=== PATIENT | male | born 1965 | race Caucasian/White ===

== ENCOUNTER 2017-03-12 05:07 | Inpatient (IN) | payer OTHER, MEDICAID ==
[~2017-03-12 05:07] MED LIST: AMLODIPINE BESYL5 MG PO; AUGMENTIN 875-1 EAC2 PO; CALCITRIOL0.25 MC1 PO; FUROSEMIDE40 M2 PO; H; HYDRALAZINE HCL50 M1 PO; HYDROCODON-ACE1 EA17 PO; ISOSORBIDE MONO60 M3 PO; METOPROLOL TAR100 M2 PO; PHENERGAN25 MG; POTASSIUM CHLO20 ME3 PO; RENVELA800 M1 PO; SULFAMYLON SOL250 M1 TOP; VIBRAMYCIN100 M1 PO; VITAMIN D250000 UNI1 PO
[2017-03-12 05:43] LABS: BASO % 0.6 % (0-2); EOS % 4.8 % (0-7); EOSINOPHIL ABSOLUTE COUNT 0.4 tho/cmm (0.0-0.7); HCT-HEMATOCRIT 35.5 % (36.0-53.5); HGB-HEMOGLOBIN 11.1 gm/dl (13.5-17.0); IMMATURE GRANULOCYTES ABSOLUTE 0.01 tho/cmm (0-0.03); IMMATURE GRANULOCYTES PERCENT 0.1 % (0-0.3); LYMPH % 9.4 % (20-45); LYMPH ABSOLUTE COUNT 0.7 tho/cmm (0.8-4.5); MCH (MEAN CORPUSCULAR HGB) 30.7 pg (28.0-32.0); MCHC MEAN CORPUSCULAR HGB CONC 31.3 % (32.0-36.0); MCV (MEAN CELL VOLUME) 98.1 fl (82.0-96.0); MEAN PLATELET VOLUME 10.3 cmc (9.4-12.4); MONO % 7.7 % (0-12); MONOCYTE ABSOLUTE COUNT 0.6 tho/cmm (0.0-1.2); NEUTROPHIL ABSOLUTE COUNT 5.6 tho/cmm (1.6-8.0); NEUTROPHIL-AUTOMATED 5.6 tho/cmm (1.6-8.0); NEUTROPHILS % 77.4 % (40-80); PLATELET COUNT 209 tho/cmm (150-450); RED BLOOD COUNT 3.62 mil/cmm (4.40-5.70); RED CELL DISTRIBUTION WIDTH 17.4 % (12.4-16.4); WHITE BLOOD COUNT 7.3 tho/cmm (4.0-10.0)
[2017-03-12 06:01] LABS: ANION GAP 13 mmol/L (0-20); BLOOD UREA NITROGEN 50 mg/dl (6-24); CALCIUM 7.4 mg/dl (8.5-10.5); CARBON DIOXIDE-VENOUS 27 mmol/L (22-32); CHLORIDE 103 mmol/l (96-110); CREATININE 5.75 mg/dl (0.60-1.30); GLUCOSE 110 mg/dL (70-110); POTASSIUM 4.7 mmol/L (3.7-5.1); SODIUM 138 mmol/L (135-145); eGFR VALUE FOR BLACK 12 mL/Min
[2017-03-12] MEDS ORDERED: FOLIC ACID1 M1 PO (07:06)
[2017-03-12] MEDS ORDERED: TRAZODONE HCL50 M1 PO (07:07)
[2017-03-12 12:52] LABS: URINE LEUKOCYTE ESTERASE NEGATIVE (NEG); URINE PROTEIN LARGE (NEG)
[2017-03-12 12:55] LABS: URINE APPEARANCE CLEAR; URINE BILIRUBIN NEGATIVE (NEG); URINE BLOOD SMALL (NEG); URINE COLOR YELLOW; URINE GLUCOSE (UA) MODERATE (NEG); URINE KETONE NEGATIVE (NEG); URINE NITRITE NEGATIVE (NEG)
[2017-03-12 13:01] LABS: URINE EPITHELIAL CELLS 0-1 /[HPF] (0-10)
[2017-03-13 05:15] LABS: ABG CO2 ARTERIAL 24 mmol/L (21-27); ARTERIAL BLD GAS O2 SATURATION 91 % (95-98); ARTERIAL BLOOD GAS PCO2 60 mmHg (32-45); ARTERIAL PO2 80 mmHg (70-100); BICARBONATE 23 mmol/L (21-28); BLOOD GAS BASE EXCESS -6 mM/L (-/+3)
[2017-03-13 06:59] LABS: BASO % 0.4 % (0-2); EOS % 2.7 % (0-7); EOSINOPHIL ABSOLUTE COUNT 0.2 tho/cmm (0.0-0.7); HCT-HEMATOCRIT 37.6 % (36.0-53.5); HGB-HEMOGLOBIN 11.7 gm/dl (13.5-17.0); IMMATURE GRANULOCYTES ABSOLUTE 0.02 tho/cmm (0-0.03); IMMATURE GRANULOCYTES PERCENT 0.3 % (0-0.3); LYMPH % 7.8 % (20-45); LYMPH ABSOLUTE COUNT 0.6 tho/cmm (0.8-4.5); MCH (MEAN CORPUSCULAR HGB) 30.9 pg (28.0-32.0); MCHC MEAN CORPUSCULAR HGB CONC 31.1 % (32.0-36.0); MCV (MEAN CELL VOLUME) 99.2 fl (82.0-96.0); MEAN PLATELET VOLUME 11.1 cmc (9.4-12.4); MONO % 6.4 % (0-12); MONOCYTE ABSOLUTE COUNT 0.5 tho/cmm (0.0-1.2); NEUTROPHIL ABSOLUTE COUNT 5.9 tho/cmm (1.6-8.0); NEUTROPHIL-AUTOMATED 5.9 tho/cmm (1.6-8.0); NEUTROPHILS % 82.4 % (40-80); PLATELET COUNT 244 tho/cmm (150-450); RED BLOOD COUNT 3.79 mil/cmm (4.40-5.70); WHITE BLOOD COUNT 7.2 tho/cmm (4.0-10.0)
[2017-03-13 07:15] LABS: ALBUMIN 2.8 g/dl (3.5-5.0); BLOOD UREA NITROGEN 66 mg/dl (6-24); CALCIUM 7.5 mg/dl (8.5-10.5); CARBON DIOXIDE-VENOUS 22 mmol/L (22-32); CHLORIDE 103 mmol/l (96-110); GLUCOSE 80 mg/dL (70-110); MAGNESIUM 1.9 mg/dl (1.8-2.6); SODIUM 138 mmol/L (135-145); eGFR VALUE FOR BLACK 9 mL/Min
[2017-03-13 07:18] LABS: ABG CO2 ARTERIAL 23 mmol/L (21-27); ARTERIAL BLD GAS O2 SATURATION 90 % (95-98); BICARBONATE 22 mmol/L (21-28); BLOOD GAS BASE EXCESS -4 mM/L (-/+3); PH 7.29 Units (7.35-7.45)
[2017-03-13 07:20] LABS: ARTERIAL BLOOD GAS PCO2 46 mmHg (32-45); ARTERIAL PO2 63 mmHg (70-100)
[2017-03-13 07:23] LABS: ANION GAP 20 mmol/L (0-20); CREATININE 7.24 mg/dl (0.60-1.30); POTASSIUM 6.8 mmol/L (3.7-5.1)
[2017-03-13 07:28] LABS: PHOSPHOROUS 8.6 mg/dl (2.5-4.9)
[2017-03-13] MEDS ORDERED: MINOXIDIL2.5 M1 PO (12:50)
[2017-03-13] MEDS ORDERED: FOLIC ACID1 M1 PO (12:51)
[2017-03-13] MEDS ORDERED: TRAZODONE HCL50 M1 PO (12:51)
[2017-03-13] MEDS ORDERED: PROAIR HFA8.5 GM INH (12:51)
[2017-03-14 04:24] LABS: BASO % 0.8 % (0-2); BASO ABSOLUTE COUNT 0.1 tho/cmm (0.0-0.2); EOSINOPHIL ABSOLUTE COUNT 0.3 tho/cmm (0.0-0.7); HCT-HEMATOCRIT 38.7 % (36.0-53.5); HGB-HEMOGLOBIN 12.2 gm/dl (13.5-17.0); IMMATURE GRANULOCYTES ABSOLUTE 0.02 tho/cmm (0-0.03); IMMATURE GRANULOCYTES PERCENT 0.3 % (0-0.3); LYMPH % 7.4 % (20-45); LYMPH ABSOLUTE COUNT 0.6 tho/cmm (0.8-4.5); MCH (MEAN CORPUSCULAR HGB) 30.6 pg (28.0-32.0); MCHC MEAN CORPUSCULAR HGB CONC 31.5 % (32.0-36.0); MEAN PLATELET VOLUME 10.9 cmc (9.4-12.4); MONO % 4.9 % (0-12); MONOCYTE ABSOLUTE COUNT 0.4 tho/cmm (0.0-1.2); NEUTROPHIL ABSOLUTE COUNT 6.5 tho/cmm (1.6-8.0); NEUTROPHIL-AUTOMATED 6.5 tho/cmm (1.6-8.0); NEUTROPHILS % 82.6 % (40-80); PLATELET COUNT 242 tho/cmm (150-450); RED BLOOD COUNT 3.99 mil/cmm (4.40-5.70); RED CELL DISTRIBUTION WIDTH 16.4 % (12.4-16.4); WHITE BLOOD COUNT 7.9 tho/cmm (4.0-10.0)
[2017-03-14 04:37] LABS: ALBUMIN 2.7 g/dl (3.5-5.0); BLOOD UREA NITROGEN 43 mg/dl (6-24); CALCIUM 7.1 mg/dl (8.5-10.5); CARBON DIOXIDE-VENOUS 25 mmol/L (22-32); CHLORIDE 100 mmol/l (96-110); PHOSPHOROUS 7.4 mg/dl (2.5-4.9); SODIUM 132 mmol/L (135-145); eGFR VALUE FOR BLACK 13 mL/Min
[2017-03-14 04:45] LABS: ANION GAP 12 mmol/L (0-20); CREATININE 5.33 mg/dl (0.60-1.30); GLUCOSE 140 mg/dL (70-110); POTASSIUM 4.7 mmol/L (3.7-5.1)
[2017-03-14 05:26] LABS: PROCALCITONIN 0.71 ng/ml (0.05-0.09)
[2017-03-15 05:57] LABS: INR 1.2 INR (0.9-1.1); PROTHROMBIN TIME 14.4 SECONDS (9.0-13.6)
[2017-03-15 06:03] LABS: ANION GAP 12 mmol/L (0-20); BLOOD UREA NITROGEN 31 mg/dl (6-24); CALCIUM 7.4 mg/dl (8.5-10.5); CARBON DIOXIDE-VENOUS 25 mmol/L (22-32); CHLORIDE 100 mmol/l (96-110); CREATININE 5.28 mg/dl (0.60-1.30); GLUCOSE 110 mg/dL (70-110); POTASSIUM 4.4 mmol/L (3.7-5.1); SODIUM 133 mmol/L (135-145); eGFR VALUE FOR BLACK 14 mL/Min
[2017-03-15 06:06] LABS: PHOSPHOROUS 4.4 mg/dl (2.5-4.9)
[2017-03-15] MEDS ORDERED: COREG6.25 M1 PO (14:57)
[2017-03-15] MEDS ORDERED: MINOXIDIL10 M1 PO (14:57)
[2017-03-15] MEDS ORDERED: FLONASE ALLERG9.9 ML (14:59)
[2017-03-15 17:19] LABS: BODY FLUID APPEARANCE HAZY (CLEAR); BODY FLUID COLOR YELLOW (COLORLESS); BODY FLUID RBC COUNT <1000 cmm (0); BODY FLUID TYPE PLEURAL; BODY FLUID VOLUME 1000 ml; BODY FLUID WBC COUNT 481 cmm
[2017-03-15 17:33] LABS: BODY FLUID LYMPHOCYTES 23 %; BODY FLUID MACROPHAGES 22 %; BODY FLUID NEUTROPHILS 55 %
[2017-03-15 19:33] LABS: BODY FLUID TYPE PLEURAL
[2017-05-02] MEDS ORDERED: TYLENOL EXTRA500 M1 PO (07:30)
[2017-05-02] MEDS ORDERED: ARANESP25 MCG/1 M IVP (07:32)
[2017-05-02] MEDS ORDERED: CATAPRES0.1 M1 PO (07:33)
[2017-05-02] MEDS ORDERED: FERRLECIT62.5 MG/5 IV (07:33)
[2017-05-02] MEDS ORDERED: VITAMIN D250000 UNI1 PO (07:34)
[2017-05-02] MEDS ORDERED: [UNRECOGNIZED DRUG - REMARK] (07:34)
[2017-05-02] MEDS ORDERED: QUETIAPINE FUM100 M1 PO (09:17)
[2017-05-15] MEDS ORDERED: COREG6.25 M1 PO (21:32)
[2017-05-15] MEDS ORDERED: MONOXIDIL (21:32)
== END 2017-03-15 16:32 | DRG 291 ==
LOC: EDMED 05:07 → EMR2 07:19 → CCU 08:45 → PCUA 03-14 17:05
PROVIDERS: Emergency Medicine; Family Medicine; Internal Medicine; Registered Nurse; ADMIT Internal Medicine
PROC: 5A1D60Z (ICD-10-PCS; 2017-03-12)
PROC: 0W993ZZ Drainage of Right Pleural Cavity, Percutaneous Approach (ICD-10-PCS; principal; 2017-03-15)
DX: I13.2 Hypertensive heart and chronic kidney disease with heart failure and with stage 5 chronic kidney disease, or end stage renal disease (principal); I50.33 Acute on chronic diastolic (congestive) heart failure; J96.01 Acute respiratory failure with hypoxia; J96.02 Acute respiratory failure with hypercapnia; J90 Pleural effusion, not elsewhere classified; N18.6 End stage renal disease; I27.2 Other secondary pulmonary hypertension; Z99.81 Dependence on supplemental oxygen; I16.0 Hypertensive urgency; D63.1 Anemia in chronic kidney disease; F17.220 Nicotine dependence, chewing tobacco, uncomplicated; R41.82 Altered mental status, unspecified; E21.3 Hyperparathyroidism, unspecified; Z91.15 Patient's noncompliance with renal dialysis; Z99.2 Dependence on renal dialysis
CPT/HCPCS: C8929; J0360; J0456; J0696; J1644; J1940; J2060; J7050